=== PATIENT | female | born 1955 | race Caucasian/White ===

== ENCOUNTER 2019-07-18 09:16 | Day surgery (SDC) | payer OTHER ==
[2019-07-18] MEDS ORDERED: LACTATED RINGER'S 1,000 ML IV (09:30)
[2019-07-18] MEDS: GENTAMICIN 80 MG INJ (10:56)
[2019-07-18] MEDS: POLYMYXIN/BACITRACIN 1L IRRIG (10:57)
[2019-07-18] MEDS ORDERED: PROPOFOL 20 ML (11:11)
[2019-07-18] MEDS ORDERED: MIDAZOLAM 1 MG/ML 2 ML INJ ×2 (11:21→13:00)
[2019-07-18] MEDS ORDERED: ALBUTEROL 0.083% (NEB) 2.5 MG/3 ML AMP HHN (11:30)
[2019-07-18] MEDS ORDERED: FENTAnyl 50 MCG/ML VIAL IV ×2 (11:30)
[2019-07-18] MEDS ORDERED: HYDROmorphONE 1 MG/5 ML IV SYRINGE IV ×2 (11:30)
[2019-07-18] MEDS: LIDOCAINE 1%/EPI 30 ML INJ ×2 (11:30→12:35)
[2019-07-18] MEDS ORDERED: ONDANSETRON 4 MG INJ IV (11:30)
[2019-07-18] MEDS ORDERED: MEPERIDINE 25 MG INJ IV (11:30)
[2019-07-18] MEDS ORDERED: DIPHENHYDRAMINE 50 MG INJ IV (11:30)
[2019-07-18] MEDS: BUPIVACAINE 0.25% (MPF) 30 ML INJ (11:30)
[2019-07-18] MEDS ORDERED: METOCLOPRAMIDE 10 MG INJ IV (11:30)
[2019-07-18] MEDS: BALANCED SALT SOLN 15 ML OPH IRRIG LEFT EYE (11:57)
[2019-07-18] MEDS ORDERED: CEFAZOLIN 1 GM INJ (13:57)
[2019-07-18] MEDS ORDERED: OXYCODONE/ACETAMINOPHEN (5/325) TAB PO (14:30)
== END 2019-07-18 16:23 | disposition home or self-care (01) ==
LOC: SDS 09:16
DX: C44.311 Basal cell carcinoma of skin of nose (principal)
CPT/HCPCS: 11644; 88305; 88331; 88332